=== PATIENT | female | born 1965 | race African-American/Black ===

== ENCOUNTER 2024-11-09 10:36 | Emergency (ER) | payer OTHER, SELFPAY ==
[2024-11-09 11:00] VITALS: BP 143/91; PULSE 71; RESP 18; TEMP 36.9; O2SAT 98; BMI 34.9
--- NOTE | 2024-11-09 12:13 | ED.GENADULT ---
HPI - General Adult General Date Seen: 11/09/24 Chief complaint: Fall/Minor Trauma Stated complaint: fell on ice at work Time Seen by Provider: 11/09/24 11:13 History of Present Illness HPI narrative: 59-year-old female presenting to the ER today for evaluation. She is generally healthy. 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 She slipped on the ice 3 days ago on 11/06. She landed on her backside. She has been experiencing pain in the right side of her groin along the inguinal ligament and less pain on the left side.. She also notes that she got a small bruise on her right distal villagomez. Not much pain in that area. She has also been having some mild pain in her left shoulder down to her elbow. She has not had any bruising or swelling there. Normal range of motion She notified her boss of the work related fall on the day the injury. She did not come to the ER until today because it is difficult for her to find a spot to park her trailer and truck to be seen in a hospital. She was able to get a ride to come here to [facility] today. She is not having any numbness or weakness down her legs. No chest pain or trouble breathing. She did not hit her head. No neck pain. Related Data Home Medications ?Medication ?Instructions ?Recorded ?Confirmed No Known Home Medications 11/09/24 11/09/24 Allergies Allergy/AdvReac Type Severity Reaction Status Date / Time No Known Drug Allergies Allergy Verified 11/09/24 11:00 [facility] Social History Smoking Status: Former smoker What tobacco products do you use: cigars Second hand tobacco smoke exposure: Yes How often do you have a drink containing alcohol: monthly or less How many standard drinks containing alcohol do you have on a typical day: 1 or 2 How often do you have six or more drinks on one occasion: Never AUDIT-C Alcohol total score: 1 Non-prescribed substance use: denies use service: No Exam Narrative: Exam Narrative: Constitutional: Appears well-developed and well-nourished. Alert. Conversant. Non toxic. HENT: Head: Atraumatic. Exam head Nose: Nose normal. Mouth/Throat: Oral mucosa is clear and moist. no trismus. Pharynx normal. Tonsils symmetric. No tonsillar enlargement, erythema, or exudate. Eyes: Conjunctivae normal. EOM normal. Pupils equal, round, and reactive to light. No scleral icterus. Neck: Normal range of motion. Neck supple. No tracheal deviation present. Cardiovascular: Normal rate, regular rhythm. No gallop. No friction rub. No murmur heard. Symmetric radial artery pulses Pulmonary/Chest: Effort normal. No stridor. No respiratory distress. No wheezes. No rales. No rhonchi . No tenderness. Abdominal: Soft. Bowel sounds normal. No distension. No mass. No tenderness. No rebound. No guarding. Musculoskeletal: RUE: Normal range of motion. No tenderness. No deformity LUE: Normal range of motion. No tenderness. No deformity. Clavicle, shoulder, humerus, biceps, triceps, elbow, forearm, wrist, hand nontender Pelvis is stable. No tenderness over the trochanters or ischial crest. She is tender along the right proximal thigh/inguinal ligament and less tender on the left side. No crepitus. Normal flexion extension of both hips and both knees. She has pain with internal-external rotation of the right hip. No pain with flexion of the knee. Femoral shaft, tibia, nontender. Ankle and foot are nontender. RLE: Normal range of motion. No edema. No tenderness. No deformity LLE: Normal range of motion. No edema. No tenderness. No deformity Neurological: E Mental status normal. Attention normal. Alert and oriented x3. GCS 15. Memory normal. Speech fluent. Cognition normal. Cranial Nerves intact II-XII except I did not formally test gag or visual acuity. EOMI. Palate elevates symmetrically and tongue protrudes in the midline. Strength: 5/5 trapezius on the right and left 5/5 deltoid on the right and left 5/5 biceps on the right and left 5/5 triceps on the right and left 5/5 transportation department supervisor on the right and left 5/5 thumb opposition on the right and left 5/5 finger abduction on the right and left 5/5 hip flexors (L3) on the right and left 5/5 quadriceps (L4) on the right and left 5/5 tibialis anterior on the right and left 5/5 EHL (L5) on the right and left 5/5 gastrocnemius (S1) on the right and left 5/5 hamstring on the right and left Sensation intact to light touch in both upper extremities (C4-T1) Sensation intact to light touch in Both lower extremities (L4-S1). Gait normal. Skin: Skin is warm and dry. No rash noted. No pallor. Normal capillary refill. Psychiatric: Normal mood. Normal affect. Const: Vital Signs, click to edit/add: Vital Signs - 24 hr 11/09/24 11:00 11/09/24 13:00 Temperature 98.4 F Pulse Rate [Pulse Oximeter] 71 76 Respiratory Rate 18 16 Blood Pressure [Ri t Upper Arm] 143/91 H 142/94 H Pulse Oximetry 98 100 Oxygen Delivery Me thod Room Air Room Air Course Vital Signs Vital signs: Initial Vital Signs Temperature 98.4 F 11/09/24 11:00 Temperature Source Temporal Artery Scan 11/09/24 11:00 Pulse Rate 71 11/09/24 11:00 Pulse Rhythm Regular 11/09/24 11:00 Respiratory Rate 18 11/09/24 11:00 Blood Pressure 143/91 H 11/09/24 11:00 Blood Pressure Mean 108 H 11/09/24 11:00 Blood Pressure Position Supine 11/09/24 11:00 Pulse Oximetry 98 11/09/24 11:00 Oxygen Delivery Method Room Air 11/09/24 11:00 Vital Signs Temperature 98.4 F 11/09/24 11:00 Pulse Rate 71 11/09/24 11:00 Respiratory Rate 18 11/09/24 11:00 Blood Pressure 143/91 H 11/09/24 11:00 Pulse Oximetry 98 11/09/24 11:00 Oxygen Delivery Method Room Air 11/09/24 11:00 Temperature 98.4 F 11/09/24 11:00 Pulse Rate 76 11/09/24 13:00 Respiratory Rate 16 11/09/24 13:00 Blood Pressure 142/94 H 11/09/24 13:00 Pulse Oximetry 100 11/09/24 13:00 Oxygen Delivery Method Room Air 11/09/24 13:00 Medications Administered Medications: Discontinued Medications Generic Name Dose Route Start Last Admin Trade Name Freq PRN Reason Stop Dose Admin Ibuprofen 600 mg 11/09/24 12:35 11/09/24 12:44 Ibuprofen 600 Mg Tablet PO 11/09/24 12:36 600 mg ONCE ONE Administration Medical Decision Making MDM Narrative Medical decision making narrative: Pleasant 59-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 She actually was at work 3 days ago in [place], [place]. She slipped on an icy parking lot there. She describes doing the ?half splits? in the parking lot and landing on her back. Ever since then she has had pain in her low back and in her groin in particular on the right side but also a bit on the left side. She did not hit her head. She is not anticoagulated. No headache or other symptoms of TBI. She is not having any neck pain. No focal neurologic deficits. She has some mild discomfort in her left shoulder and left upper arm but normal range of motion there and no bruising. She does not think it is broken Her primary area of pain is in her right groin also in her low back and left groin. X-rays of the patient's lumbar spine are negative for any acute fracture from the fall. X-rays of the patient's pelvis are negative for fracture. X-rays of the patient's right hip were also negative for fracture. At this point she is not having any focal neurologic deficits or any pain radiating down her leg to suggest a lumbar radiculopathy. No evidence for cauda equina syndrome. At this point I do not think she needs transfer for immediate MRI of her lumbar spine or her hip. She is neurovascularly intact both legs. No evidence for any more distal injury such as a femur or knee fracture. She does have a very small bruise on her distal right villagomez but she does not feel that is broken there. Discussed with the patient that at this point x-rays are reassuring. Soft tissue injury such as sprain of the hip or labral tear of the hip or other injury cannot be excluded based on her evaluation here in the ER. At this point she is safe for discharge. 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 We will try to continue her on ibuprofen or Tylenol. We will provide her with digital copies of her x-rays from her ER visit today so she can have them with her for follow-up when she gets home. Discussed that if symptoms are not improving she will need follow-up with her regular doctor or local orthopedist for further evaluation, consider MRI her right hip. Precautions for return to her nearest ER reviewed. Imaging Data XR hip: Attestation: I have reviewed the pertinent imaging results. Radiologist's impression: FINDINGS/IMPRESSION: Normal alignment. No acute fracture or acute osseous abnormalities are visualized. No hip fracture seen. XR L spine: Attestation: I have reviewed the pertinent imaging results. My impression: normal, Radiologist's impression: FINDINGS/IMPRESSION: Normal alignment. No acute fracture or acute osseous abnormalities are visualized. Normal height of the lumbar vertebral bodies. Mild diffuse degenerative changes Discharge Plan Discharge Clinical Impression: Pelvic pain, Acute pain of right hip, Fall on ice, Low back pain Patient Disposition: Home, Self-Care Condition: Stable Instructions: Acute Low Back Pain (ED), Pelvic Pain (ED) Additional Instructions: Please come back to your nearest ER right away if you have worsening symptoms or any problems such as numbness or weakness in your legs, bowel or bladder dysfunction, high fever, or any other concerns. If you are not completely improved within 2-3 days, please recheck with your regular doctor for re-evaluation. As we discussed, to treat your pain you can use ice packs or warm packs. You can also use Tylenol or ibuprofen every 6 hours as needed. If your pain is not controlled by the other methods, use the prescription pain killer ([place]) as needed. Be careful with [place] because it can cause dizziness, drowsiness, constipation. It can be addictive. Do not drive for 6 hours after taking [place]. Prescriptions: No Action No Known Home Medications Follow Up/Referrals: Provider,Not a Local [Primary Care Provider] - Stand Alone Forms: [employer] Instructions
--- NOTE | 2024-11-09 12:35 | CRLHL7_ITS ---
For Patients: As a result of the Cures Act, medical imaging exams and procedure reports are released immediately into your electronic medical record. You may view this report before your referring provider. If you have questions, please contact your health care provider. INDICATION: Fall on ice TECHNIQUE: Three views lumbar spine FINDINGS/IMPRESSION: Normal alignment. No acute fracture or acute osseous abnormalities are visualized. Normal height of the lumbar vertebral bodies. Mild diffuse degenerative changes Dictated by Aneta Victoria MD @ 11/09/2024 1:58:31 PM (Electronically Signed)
--- NOTE | 2024-11-09 12:35 | CRLHL7_ITS ---
For Patients: As a result of the Cures Act, medical imaging exams and procedure reports are released immediately into your electronic medical record. You may view this report before your referring provider. If you have questions, please contact your health care provider. INDICATION: Fall on ice TECHNIQUE: Three views right hip FINDINGS/IMPRESSION: Normal alignment. No acute fracture or acute osseous abnormalities are visualized. No hip fracture seen. Dictated by Aneta Victoria MD @ 11/09/2024 1:56:15 PM (Electronically Signed)
[2024-11-09] MEDS: IBUPROFEN 600 MG TABLET PO (12:44)
[2024-11-09 13:00] VITALS: BP 142/94; PULSE 76; RESP 16; O2SAT 100
== END 2024-11-09 14:24 | disposition home or self-care (01) ==
PROVIDERS: Emergency Provider Emergency Medicine
DX: M54.50 Low back pain, unspecified (principal); M25.551 Pain in right hip; W00.9XXA Unspecified fall due to ice and snow, initial encounter
CPT/HCPCS: 72100; 73502; 99283; 99284; A9270